=== PATIENT | female | born 1950 | race Asian ===

== ENCOUNTER 2019-07-29 22:26 | Emergency (ER) | payer MEDICARE, MEDICAID ==
[~2019-07-29] VITALS: Ht 162.6 cm; Wt 74.4 kg
[2019-07-29 22:39] VITALS: Ht 162.6 cm; Wt 74.4 kg
[2019-07-30 00:50] LABS: CALCIUM 8.1 mg/dL (8.5-10.1); CARBON DIOXIDE 35.1 mmol/L (21-32); CREATININE SERUM 1.8 mg/dL (0.6-1.0); POTASSIUM SERUM 4.1 mmol/L (3.5-5.1)
[2019-07-30 00:55] LABS: ALBUMIN 2.6 g/dL (3.4-5.0); BILIRUBIN TOTAL 1.1 mg/dL (0.20-1.00); TOTAL PROTEIN, SERUM 5.7 g/dL (6.4-8.2); URIC ACID 17.2 mg/dL (2.6-6.0)
[2019-07-30 00:58] LABS: BASOPHIL % 0.6 % (0-2)
[2019-07-30 01:00] LABS: PLATELET COUNT 78 x10^3mcL (130-400); RED CELL DISTRIBUTION WIDTH 21.2 % (11.5-14.5)
[2019-07-30 02:58] VITALS: BP 105/62
== END 2019-07-30 02:58 | disposition home or self-care (01) ==
LOC: ED 22:26
PROVIDERS: Emergency Medicine
DX: L03.116 Cellulitis of left lower limb (principal); L03.115 Cellulitis of right lower limb; N28.9 Disorder of kidney and ureter, unspecified; Z95.0 Presence of cardiac pacemaker
CPT/HCPCS: 36415; 83880; Q0092